=== PATIENT | male | born 1960 | race Caucasian/White ===

== ENCOUNTER 2018-06-29 11:17 | Emergency (ER) | payer BC, OTHER ==
[2018-06-29 12:33] LABS: PLATELET COUNT 262 10^3/uL (150-400)
--- NOTE | 2018-06-29 13:31 | EDPHY ---
H & P Stated Complaint: Transient back pain now in R chest;sxs x several days Time Seen by Provider: 06/29/18 12:52 HPI/ROS: CHIEF COMPLAINT: Right-sided chest pain HISTORY OF PRESENT ILLNESS: 57-year-old male presents with right-sided chest pain. Onset of chest pain 5 days ago. The pain was initially intermittent and right-sided. The pain is now constant x 3 days and moderate. The pain increases with deep inspiration and with movement. No associated shortness of breath, cough or fever. Exercises regularly. Nuclear stress test 2 years ago reportedly normal. 5 days ago, he was diagnosed with gout in the right ankle and was placed in a Brandt boot. The ankle pain and gout are now resolving. 10 days ago, he had left flank pain, similar to prior kidney stones. He was seen at an outside hospital and CT scan of the abdomen and pelvis was reportedly unremarkable. The flank pain has resolved. No calf pain. No prior history of pulmonary embolism or DVT. REVIEW OF SYSTEMS: complete 10 point ROS negative except at noted in the HPI - Personal History Current Tetanus Diphtheria and Acellular Pertussis (TDAP): Yes - Medical/Surgical History Hx Asthma: Yes Other PMH: gout - Social History Smoking Status: Never smoked - Physical Exam Exam: General Appearance: Alert, pleasant Eyes: Pupils equal and round, no conjunctival pallor or injection ENT, Mouth: Mucous membranes moist Neck: Normal inspection Respiratory: Point tenderness right anterior chest wall, Lungs are clear to auscultation Cardiovascular: Regular rate and rhythm Gastrointestinal: Abdomen is soft and nontender Neurological: A&O, nonfocal, normal gait Skin: Warm and dry, no rash Extremities: No calf swelling or tenderness; right ankle--range of motion without pain, swelling around the right ankle and distal foot Psychiatric: Mood and affect normal Constitutional: Initial Vital Signs Temperature (C) 36.7 C 06/29/18 11:25 Heart Rate 56 L 06/29/18 11:25 Respiratory Rate 16 06/29/18 11:25 Blood Pressure 138/87 H 06/29/18 11:25 O2 Sat (%) 98 06/29/18 11:25 O2 Delivery Mode Room Air Allergies/Adverse Reactions: No Known Allergies Allergy (Unverified 06/29/18 11:30) Home Medications: Medication Instructions Recorded Albuterol Sulfate [Ventolin Hfa] 8 gm IH 06/29/18 Medical Decision Making - Diagnostics EKG Interpretation: EKG interpreted by me reveals sinus rhythm, rate 49, no ST or T segment changes. Interpretation: Normal EKG Imaging Results: Imaging Impressions Chest X-Ray 06/29/18 12:14 Impression: No acute pulmonary disease. Chest/Thorax CTA 06/29/18 13:28 Impression: 1. No definite pulmonary thromboemboli. 2. Ascending aortic aneurysm, 4.1 cm without dissection. 3. Coronary atherosclerosis without cardiomegaly. 4. No acute pulmonary disease. 5. Calcified granulomata right hilum. Findings and recommendations discussed with emergency department physician, Noemí Lemus MD at 1447 hours on June 29, 2018. Final report concurs with initial preliminary interpretation. A test result has been communicated to a licensed care provider and documented in the [facility] Critical Result system on 06/29/2018 14:47, Message ID [id number]. Imaging: Discussed imaging studies w/ call center consultant Radiologist, I viewed and interpreted images myself ED Course/Re-evaluation: This patient presents with a 5 day history of right-sided chest pain, now constant for over 48 hr. Stat EKG reveals no evidence of ischemia or dysrhythmia. Chest x-ray is unremarkable. D-dimer is slightly elevated. CT pulmonary angiogram ordered to rule out pulmonary embolism. CT scan results discussed with the patient. CAD present, with no known history of coronary artery disease. He is followed by Dr. Robert Cornell and had a normal nuclear stress test 2 years ago. In addition, the patient has a 4.1 cm aortic aneurysm, also new for him. He understands that he will need to have this followed by his commercial makeup artist. The patient called Dr. Cornell while he was in the emergency department and arranged for a follow-up visit. Differential Diagnosis: Differential diagnosis includes though it is not limited to pneumonia, pneumothorax, pulmonary embolism, aortic dissection, pericarditis, acute coronary syndrome. - Data Points Laboratory Results: Laboratory Results 06/29/18 12:21 06/29/18 12:21 06/29/18 06/29/18 06/29/18 15:47 12:23 12:21 WBC RBC Hgb Hct MCV MCH MCHC RDW Plt Count MPV Neut % (Auto) Lymph % (Auto) [place] % (Auto) Eos % (Auto) Baso % (Auto) Nucleat RBC Rel Count Absolute Neuts (auto) Absolute Lymphs (auto) Absolute Monos (auto) Absolute Eos (auto) Absolute Basos (auto) Absolute Nucleated RBC Immature Gran % Immature Gran # D-Dimer Sodium 139 mEq/L mEq/L (135-145) Potassium 4.2 mEq/L mEq/L (3.3-5.0) Chloride 107 mEq/L mEq/L (97-110) Carbon Dioxide 25 mEq/l mEq/l (22-31) Anion Gap 7 mEq/L L mEq/L (8-16) BUN 9 mg/dL mg/dL (7-23) Creatinine 0.7 mg/dL mg/dL (0.7-1.3) Estimated GFR > 60 Glucose 132 mg/dL H mg/dL (70-100) Calcium 9.1 mg/dL mg/dL (8.5-10.4) POC Troponin I 0.00 ng/mL ng/mL 0.00 ng/mL ng/mL (0.00-0.08) (0.00-0.08) 06/29/18 06/29/18 12:21 12:21 WBC 7.29 10^3/uL 10^3/uL (3.80-9.50) RBC 4.73 10^6/uL 10^6/uL (4.40-6.38) Hgb 13.5 g/dL L g/dL (13.7-17.5) Hct 39.8 % L % (40.0-51.0) MCV 84.1 fL fL (81.5-99.8) MCH 28.5 pg pg (27.9-34.1) MCHC 33.9 g/dL g/dL (32.4-36.7) RDW 13.1 % % (11.5-15.2) Plt Count 262 10^3/uL 10^3/uL (150-400) MPV 11.0 fL fL (8.7-11.7) Neut % (Auto) 73.3 % % (39.3-74.2) Lymph % (Auto) 17.7 % % (15.0-45.0) [place] % (Auto) 7.0 % % (4.5-13.0) Eos % (Auto) 0.8 % % (0.6-7.6) Baso % (Auto) 0.7 % % (0.3-1.7) Nucleat RBC Rel Count 0.0 % % (0.0-0.2) Absolute Neuts (auto) 5.34 10^3/uL 10^3/uL (1.70-6.50) Absolute Lymphs (auto) 1.29 10^3/uL 10^3/uL (1.00-3.00) Absolute Monos (auto) 0.51 10^3/uL 10^3/uL (0.30-0.80) Absolute Eos (auto) 0.06 10^3/uL 10^3/uL (0.03-0.40) Absolute Basos (auto) 0.05 10^3/uL 10^3/uL (0.02-0.10) Absolute Nucleated RBC 0.00 10^3/uL 10^3/uL (0-0.01) Immature Gran % 0.5 % % (0.0-1.1) Immature Gran # 0.04 10^3/uL 10^3/uL (0.00-0.10) D-Dimer 0.58 ug/mLFEU H ug/mLFEU (0.00-0.50) Sodium Potassium Chloride Carbon Dioxide Anion Gap BUN Creatinine Estimated GFR Glucose Calcium POC Troponin I Point of Care Test Results: Chemistry 06/29/18 06/29/18 15:47 12:23 POC Troponin I 0.00 ng/mL ng/mL 0.00 ng/mL ng/mL (0.00-0.08) (0.00-0.08) Departure - Departure Disposition: Home, Routine, Self-Care Clinical Impression: Chest pain Qualifiers: Chest pain type: intercostal pain Qualified Code(s): R07.82 - Intercostal pain Condition: Good Instructions: Chest Pain (ED) Additional Instructions: Your CT scan shows an aortic aneurysm (4.1cm) and coronary artery disease. You will need to followup with a commercial makeup artist. 1. Based upon the testing done in the Emergency Department today we see no evidence of a heart attack. 2. We are unable to fully exclude coronary artery disease based upon the testing available in the Emergency Department. 3. For this reason, we would like you to be seen by cardiology for consideration of additional testing within the next 3 days. 4. Please contact the commercial makeup artist you have been referred to schedule this appointment as soon as possible. Their offices are typically open from 8:30am- 5pm M-F. 5. Please return to the Emergency Department immediately for any recurrent chest pain, difficulty breathing or other concerns. Referrals: Rakesh Cornell MD [Medical Doctor] - 1-2 days without fail
[2018-06-29] MEDS ORDERED: IOPAMIDOL (ISOVUE 370) 100 ML BTL IV ONE (13:42)
--- NOTE | 2018-06-29 16:01 | CPEKG ---
Test Reason : OPEN Blood Pressure : / mmHG Vent. Rate : 049 BPM Atrial Rate : 048 BPM P-R Int : 189 ms QRS Dur : 101 ms QT Int : 441 ms P-R-T Axes : 039 023 001 degrees QTc Int : 399 ms Sinus bradycardia Confirmed by Vinh Macdonald ([id number]) on 06/29/2018 4:00:45 PM Referred By: Confirmed By:Vinh Macdonald
[2018-06-29 16:34] VITALS: BP 147/92
== END 2018-06-29 16:34 | disposition home or self-care (01) ==
DX: R07.9 Chest pain, unspecified (principal); M54.9 Dorsalgia, unspecified; I71.4 Abdominal aortic aneurysm, without rupture; I25.10 Atherosclerotic heart disease of native coronary artery without angina pectoris
CPT/HCPCS: 84484-PO; Q9967